=== PATIENT | female | born 1995 | race African-American/Black ===

== ENCOUNTER 2016-10-31 11:45 | Emergency (ER) | payer OTHER ==
[~2016-10-31] VITALS: Ht 160 cm; Wt 72.6 kg
[~2016-10-31 11:45] MED LIST: GRIFULVIN V500 MG PO; IBUPROFEN 400400 M1 PO; IBUPROFEN 600600 M1 PO; NAPROSYN500 MG PO; PROMETHAZINE-C120 ML PO
[2016-10-31 12:04] LABS: URINE BILIRUBIN NEGATIVE (Negative); URINE BLOOD NEGATIVE (Negative); URINE COLOR YELLOW; URINE GLUCOSE-RANDOM* NEGATIVE (Negative); URINE KETONES NEGATIVE (Negative); URINE NITRITE NEGATIVE (Negative); URINE PROTEIN (DIPSTICK) NEGATIVE (Negative); URINE SPECIFIC GRAVITY >= 1.030 (1.003-1.035); URINE UROBILINOGEN 0.2 E.U./dl (0.2-1.0)
[2016-10-31] MEDS ORDERED: FLAGYL500 MG PO (12:54)
[2016-10-31 13:23] VITALS: BP 118/62
[2016-11-01 16:09] LABS: CHLAMYDIA TRACHOMATIS-PCR Negative (Negative); NEISSERIA GONORRHEA-PCR Negative (Negative)
== END 2016-10-31 13:23 | disposition home or self-care (01) ==
LOC: ER 11:45
PROVIDERS: Physician Assistant
DX: N76.0 Acute vaginitis (principal)

== ENCOUNTER 2017-05-02 22:52 | Emergency (ER) | payer OTHER ==
[~2017-05-02] VITALS: Ht 162.6 cm; Wt 72.6 kg
--- NOTE | ~2017-05-02 | EKG ---
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: [facility] : 1995 Requested By: Sean Angeles Order Number: [id number] MD: Anatoly Livingston Measurements Intervals [place] Rate: 78 P: 49 NC: 163 QRS: 70 QRSD: 82 T: 27 QT: 364 QTc: 415 Interpretive Statements Sinus rhythm Baseline wander in lead(s) V3 Compared to ECG 06/15/2016 13:36:59 No significant changes Electronically Signed On 05-03-2017 13:28:52 CDT by Anatoly Livingston [email or web address] <ELECTRONICALLY SIGNED> By: Anatoly Livingston MD 05/03/17 1328 Anatoly Livingston MD /CAPRICE
[~2017-05-02 22:52] MED LIST changes: +FLAGYL500 MG PO
[2017-05-02 23:31] LABS: URINE BILIRUBIN NEGATIVE (Negative); URINE BLOOD NEGATIVE (Negative); URINE COLOR YELLOW; URINE GLUCOSE-RANDOM* NEGATIVE (Negative); URINE KETONES NEGATIVE (Negative); URINE LEUKOCYTES-REFLEX NEGATIVE (Negative); URINE PROTEIN (DIPSTICK) NEGATIVE (Negative); URINE SPECIFIC GRAVITY 1.025 (1.003-1.035); URINE UROBILINOGEN 0.2 E.U./dl (0.2-1.0)
[2017-05-03 00:14] LABS: HEMATOCRIT 32.9 % (37.0-47.0); HEMOGLOBIN 10.6 gm/dL (12.0-15.0); MCH 25.8 pg (26.0-34.0); MCHC 32.2 g/dL (28.0-37.0); RBC 4.11 mil/uL (4.20-5.00); RDW 15.7 % (10.5-14.5); WBC 9.9 thou/uL (4.0-11.0)
[2017-05-03 00:29] LABS: ALBUMIN 3.7 g/dL (3.4-5.0); CALCIUM 9.3 mg/dL (8.5-10.1); POTASSIUM 3.6 mmol/L (3.5-5.1); TOTAL BILIRUBIN 0.3 mg/dL (<0.1-1.0); TOTAL PROTEIN 7.6 g/dL (6.4-8.2)
[2017-05-03 00:34] LABS: CREATININE 0.9 mg/dL (0.6-1.0)
[2017-05-03 01:21] VITALS: BP 124/68
== END 2017-05-03 01:21 | disposition home or self-care (01) ==
LOC: ER 22:52
PROVIDERS: Emergency Medicine
DX: R42 Dizziness and giddiness (principal); R11.2 Nausea with vomiting, unspecified; Z98.890 Other specified postprocedural states

== ENCOUNTER 2017-10-07 20:57 | Emergency (ER) | payer OTHER ==
[~2017-10-07] VITALS: Ht 160 cm; Wt 68.0 kg
[~2017-10-07 20:57] MED LIST changes: +OMEPRAZOLE20 M1 PO; +ULTRAM 50MG TAB50 MG PO; +ZOFRAN4 MG PO
[2017-10-07] MEDS ORDERED: DELSYM COUGH+C180 M1 PO (22:28)
== END 2017-10-07 23:04 | disposition home or self-care (01) ==
LOC: ER 20:57
DX: J06.9 Acute upper respiratory infection, unspecified (principal); B97.89 Other viral agents as the cause of diseases classified elsewhere

== ENCOUNTER 2018-08-16 17:57 | Emergency (ER) | payer OTHER ==
[~2018-08-16] VITALS: Ht 160 cm; Wt 72.6 kg
[~2018-08-16 17:57] MED LIST changes: +DELSYM COUGH+C180 M1 PO
[2018-08-16 18:09] LABS: URINE BILIRUBIN NEGATIVE (Negative); URINE BLOOD NEGATIVE (Negative); URINE CLARITY CLEAR; URINE COLOR YELLOW; URINE GLUCOSE-RANDOM* NEGATIVE (Negative); URINE KETONES TRACE (Negative); URINE LEUKOCYTES-REFLEX NEGATIVE (Negative); URINE NITRITE-REFLEX NEGATIVE (Negative); URINE PROTEIN (DIPSTICK) NEGATIVE (Negative); URINE SPECIFIC GRAVITY 1.015 (1.005-1.035); URINE UROBILINOGEN 0.2 E.U./dl (0.2-1.0)
[2018-08-16 18:40] LABS: ABSOLUTE NEUTROPHILS 5.9 thou/uL (1.4-8.2); BASOPHILS 0.5 % (0.0-2.0); EOSINOPHILS 0.4 % (0.0-3.0); HEMOGLOBIN 12.5 gm/dL (12.0-15.0); LYMPHOCYTES 33.2 % (24.0-44.0); MCH 27.7 pg (26.0-34.0); MCHC 33.7 g/dL (28.0-37.0); MCV 82.3 fL (80.0-100.0); MONOCYTES 10.8 % (1.0-8.0); PLATELET COUNT 173 thou/uL (150-400); POLYS 55.1 % (36.0-66.0); RDW 15.2 % (10.5-14.5); WBC 10.8 thou/uL (4.0-11.0)
[2018-08-16 18:45] LABS: ANION GAP 8 mmol/L (7-16); BUN 8 mg/dL (7-18); CHLORIDE 103 mmol/L (98-107); CO2 26 mmol/L (21-32); CREATININE 1.1 mg/dL (0.6-1.0); GLUCOSE 90 mg/dL (74-106); POTASSIUM 3.6 mmol/L (3.5-5.1); SODIUM 137 mmol/L (136-145)
[2018-08-16 18:56] LABS: ALBUMIN 3.9 g/dL (3.4-5.0); MAGNESIUM 1.8 mg/dL (1.8-2.4); SGOT 26 U/L (15-37); SGPT 18 U/L (30-65); TOTAL BILIRUBIN 0.3 mg/dL (<0.1-1.0); TROPONIN-I <0.06 ng/mL (<0.06)
[2018-08-16] MEDS ORDERED: PEPCID20 MG PO (19:07)
[2018-08-16] MEDS ORDERED: ZOFRAN ODT4 MG DISSOLVE (19:07)
[2018-08-16 19:26] VITALS: BP 131/75
--- NOTE | 2018-08-18 08:41 | EKG ---
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
== END 2018-08-16 19:26 | disposition home or self-care (01) ==
LOC: ER 17:57
PROVIDERS: Emergency Medicine
DX: R42 Dizziness and giddiness (principal); R11.0 Nausea

== ENCOUNTER 2018-10-19 16:39 | Emergency (ER) | payer OTHER ==
[~2018-10-19] VITALS: Ht 160 cm; Wt 83.5 kg
[~2018-10-19 16:39] MED LIST changes: +PEPCID20 MG PO; +ZOFRAN ODT4 MG DISSOLVE
[2018-10-19 17:16] LABS: ABSOLUTE NEUTROPHILS 4.9 thou/uL (1.4-8.2); BASOPHILS 0.7 % (0.0-2.0); EOSINOPHILS 0.8 % (0.0-3.0); HEMATOCRIT 34.2 % (37.0-47.0); HEMOGLOBIN 11.4 gm/dL (12.0-15.0); LYMPHOCYTES 35.2 % (24.0-44.0); MCH 28.3 pg (26.0-34.0); MCHC 33.4 g/dL (28.0-37.0); MCV 84.9 fL (80.0-100.0); MONOCYTES 9.1 % (1.0-8.0); PLATELET COUNT 157 thou/uL (150-400); POLYS 54.2 % (36.0-66.0); RBC 4.03 mil/uL (4.20-5.00); RDW 14.8 % (10.5-14.5)
[2018-10-19 17:28] LABS: CALCIUM 9.1 mg/dL (8.5-10.1); POTASSIUM 3.5 mmol/L (3.5-5.1)
[2018-10-19 18:07] VITALS: BP 110/67
--- NOTE | 2018-10-20 01:26 | EKG ---
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 : 1995 Requested By: Roxana Cheung Order Number: [id number] MD: Masood Mccloud Measurements Intervals [place] Rate: 61 P: 85 [place]: 156 QRS: 81 QRSD: 77 T: 39 QT: 399 QTc: 402 Interpretive Statements Sinus rhythm Early transition Baseline wander Compared to ECG 08/16/2018 18:40:10 No significant changes Electronically Signed On 10-20-2018 1:26:19 CDT by Masood Mccloud [email or web address] ��������������������������������������������� <ELECTRONICALLY SIGNED> ���������������������������������������� By: Masood Mccloud MD ��������������������������������������������� 10/20/18 0126 [id number] [id number] Masood Mccloud MD /CAPRICE
== END 2018-10-19 18:15 | disposition home or self-care (01) ==
LOC: ER 16:39
PROVIDERS: Student in an Organized Health Care Education/Training Program
DX: M94.0 Chondrocostal junction syndrome [Tietze] (principal)

== ENCOUNTER 2018-11-26 06:46 | Emergency (ER) | payer OTHER ==
[~2018-11-26] VITALS: Ht 160 cm; Wt 81.7 kg
[2018-11-26] MEDS ORDERED: REGLAN 5 MG TAB5 MG PO (09:03)
[2018-11-26 09:52] VITALS: BP 110/72
== END 2018-11-26 09:53 | disposition home or self-care (01) ==
LOC: ER 06:46
DX: R51 Headache (principal)

== ENCOUNTER 2019-01-11 16:03 | Emergency (ER) | payer OTHER ==
[~2019-01-11] VITALS: Ht 162.6 cm; Wt 81.2 kg
[~2019-01-11 16:03] MED LIST changes: +REGLAN 5 MG TAB5 MG PO
[2019-01-11 16:20] LABS: URINE BILIRUBIN NEGATIVE (Negative); URINE BLOOD NEGATIVE (Negative); URINE CLARITY CLEAR; URINE COLOR YELLOW; URINE GLUCOSE-RANDOM* NEGATIVE (Negative); URINE KETONES NEGATIVE (Negative); URINE LEUKOCYTES-REFLEX NEGATIVE (Negative); URINE NITRITE-REFLEX NEGATIVE (Negative); URINE PROTEIN (DIPSTICK) NEGATIVE (Negative); URINE SPECIFIC GRAVITY 1.015 (1.005-1.035); URINE UROBILINOGEN 0.2 E.U./dl (0.2-1.0)
[2019-01-11 17:17] VITALS: BP 114/78
== END 2019-01-11 17:50 | disposition home or self-care (01) ==
LOC: ER 16:03
PROVIDERS: Nurse Practitioner Family
DX: Z32.01 Encounter for pregnancy test, result positive (principal)

== ENCOUNTER 2019-01-15 18:17 | Emergency (ER) | payer OTHER ==
[~2019-01-15] VITALS: Ht 162.6 cm; Wt 81.2 kg
[2019-01-15 18:30] LABS: URINE BILIRUBIN NEGATIVE (Negative); URINE BLOOD NEGATIVE (Negative); URINE CLARITY CLEAR; URINE COLOR YELLOW; URINE GLUCOSE-RANDOM* NEGATIVE (Negative); URINE KETONES NEGATIVE (Negative); URINE LEUKOCYTES-REFLEX NEGATIVE (Negative); URINE NITRITE-REFLEX NEGATIVE (Negative); URINE PROTEIN (DIPSTICK) NEGATIVE (Negative); URINE SPECIFIC GRAVITY >= 1.030 (1.005-1.035); URINE UROBILINOGEN 0.2 E.U./dl (0.2-1.0)
[2019-01-15 19:45] LABS: BASOPHILS 0.5 % (0.0-2.0); EOSINOPHILS 0.5 % (0.0-3.0); HEMATOCRIT 36.1 % (37.0-47.0); HEMOGLOBIN 11.9 gm/dL (12.0-15.0); LYMPHOCYTES 28.4 % (24.0-44.0); MCH 28.7 pg (26.0-34.0); MCV 86.9 fL (80.0-100.0); MONOCYTES 10.1 % (1.0-8.0); PLATELET COUNT 167 thou/uL (150-400); POLYS 60.5 % (36.0-66.0); RBC 4.15 mil/uL (4.20-5.00); RDW 14.3 % (10.5-14.5); WBC 9.9 thou/uL (4.0-11.0)
[2019-01-15 19:51] LABS: CREATININE 0.9 mg/dL (0.6-1.0); POTASSIUM 3.3 mmol/L (3.5-5.1)
[2019-01-15 19:57] LABS: ALBUMIN 3.6 g/dL (3.4-5.0); TOTAL BILIRUBIN 0.2 mg/dL (<0.1-1.0); TOTAL PROTEIN 7.4 g/dL (6.4-8.2)
[2019-01-15 21:33] VITALS: BP 100/77
== END 2019-01-15 21:46 | disposition home or self-care (01) ==
LOC: ER 18:17
PROVIDERS: Nurse Practitioner Family
DX: O26.891 Other specified pregnancy related conditions, first trimester (principal); Z3A.01 Less than 8 weeks gestation of pregnancy; K59.00 Constipation, unspecified

== ENCOUNTER 2019-02-04 03:45 | Emergency (ER) | payer OTHER ==
[~2019-02-04] VITALS: Ht 170.2 cm; Wt 79.8 kg
[2019-02-04 04:00] LABS: URINE BILIRUBIN NEGATIVE (Negative); URINE BLOOD NEGATIVE (Negative); URINE CLARITY SL CLOUDY; URINE COLOR YELLOW; URINE GLUCOSE-RANDOM* NEGATIVE (Negative); URINE KETONES NEGATIVE (Negative); URINE LEUKOCYTES-REFLEX NEGATIVE (Negative); URINE NITRITE-REFLEX NEGATIVE (Negative); URINE PROTEIN (DIPSTICK) TRACE (Negative); URINE SPECIFIC GRAVITY >= 1.030 (1.005-1.035); URINE UROBILINOGEN 0.2 E.U./dl (0.2-1.0)
[2019-02-04] MEDS ORDERED: REGLAN 10 MG TA10 MG PO (04:52)
[2019-02-04 05:03] LABS: CALCIUM 8.9 mg/dL (8.5-10.1); CREATININE 0.8 mg/dL (0.6-1.0); POTASSIUM 3.7 mmol/L (3.5-5.1)
[2019-02-04 06:02] VITALS: BP 123/69
== END 2019-02-04 06:09 | disposition home or self-care (01) ==
LOC: ER 03:45
PROVIDERS: Emergency Medicine
DX: O26.891 Other specified pregnancy related conditions, first trimester (principal); M54.41 Lumbago with sciatica, right side; Z3A.01 Less than 8 weeks gestation of pregnancy

== ENCOUNTER 2019-04-15 16:14 | Emergency (ER) | payer OTHER ==
[~2019-04-15] VITALS: Ht 162.6 cm; Wt 78.9 kg
[~2019-04-15 16:14] MED LIST changes: +REGLAN 10 MG TA10 MG PO
[2019-04-15] MEDS ORDERED: PRENATAL PO (16:18)
[2019-04-15 16:35] LABS: URINE BILIRUBIN NEGATIVE (Negative); URINE BLOOD NEGATIVE (Negative); URINE CLARITY CLEAR; URINE COLOR YELLOW; URINE GLUCOSE-RANDOM* NEGATIVE (Negative); URINE KETONES NEGATIVE (Negative); URINE LEUKOCYTES-REFLEX NEGATIVE (Negative); URINE NITRITE-REFLEX NEGATIVE (Negative); URINE PROTEIN (DIPSTICK) NEGATIVE (Negative); URINE UROBILINOGEN 0.2 E.U./dl (0.2-1.0)
[2019-04-15 16:50] LABS: ABSOLUTE NEUTROPHILS 6.9 thou/uL (1.4-8.2); BASOPHILS 0.2 % (0.0-2.0); EOSINOPHILS 0.7 % (0.0-3.0); HEMATOCRIT 34.8 % (37.0-47.0); HEMOGLOBIN 11.8 gm/dL (12.0-15.0); LYMPHOCYTES 18.3 % (24.0-44.0); MCH 30.2 pg (26.0-34.0); MCV 88.9 fL (80.0-100.0); MONOCYTES 8.9 % (1.0-8.0); PLATELET COUNT 159 thou/uL (150-400); POLYS 71.9 % (36.0-66.0); RBC 3.91 mil/uL (4.20-5.00); RDW 13.5 % (10.5-14.5); WBC 9.6 thou/uL (4.0-11.0)
[2019-04-15 16:58] LABS: CALCIUM 9.2 mg/dL (8.5-10.1); CREATININE 0.6 mg/dL (0.6-1.0); POTASSIUM 3.4 mmol/L (3.5-5.1)
[2019-04-15 18:15] VITALS: BP 102/53
== END 2019-04-15 18:15 | disposition home or self-care (01) ==
LOC: ER 16:14
PROVIDERS: Nurse Practitioner Family
DX: O26.892 Other specified pregnancy related conditions, second trimester (principal); R10.30 Lower abdominal pain, unspecified; R11.2 Nausea with vomiting, unspecified; Z3A.18 18 weeks gestation of pregnancy

== ENCOUNTER 2020-11-09 16:13 | Emergency (ER) | payer OTHER ==
[~2020-11-09] VITALS: Ht 162.6 cm; Wt 95.3 kg
[~2020-11-09 16:13] MED LIST changes: +PRENATAL PO
[2020-11-09 16:25] LABS: URINE BILIRUBIN NEGATIVE (Negative); URINE BLOOD NEGATIVE (Negative); URINE CLARITY CLEAR; URINE COLOR YELLOW; URINE GLUCOSE-RANDOM* NEGATIVE (Negative); URINE KETONES NEGATIVE (Negative); URINE NITRITE-REFLEX NEGATIVE (Negative); URINE PROTEIN (DIPSTICK) NEGATIVE (Negative); URINE SPECIFIC GRAVITY 1.025 (1.005-1.035); URINE UROBILINOGEN 0.2 E.U./dl (0.2-1.0)
[2020-11-09 16:28] LABS: URINE LEUKOCYTES-REFLEX 1+ (Negative)
[2020-11-09 16:32] LABS: MUCUS 4-6 Moderate strn/LPF (None Seen); SQUAMOUS >10 Many /LPF (0-3)
[2020-11-09 16:33] LABS: URINE RBC 0-2 Rare /HPF (0-2); URINE WBC-REFLEX 0-5 Rare /HPF (0-5)
[2020-11-09 16:34] LABS: CASTS None Seen /LPF (None Seen); CRYSTALS None Seen /LPF (None Seen); YEAST-REFLEX Present (None Seen)
[2020-11-09] MEDS ORDERED: DIFLUCAN150 MG PO (17:42)
[2020-11-09] MEDS ORDERED: MACROBID 100 M100 MG PO (17:42)
[2020-11-09 18:15] VITALS: BP 146/83
== END 2020-11-09 18:15 | disposition home or self-care (01) ==
LOC: ER 16:13
PROVIDERS: Physician Assistant
DX: B37.3 Candidiasis of vulva and vagina (principal); N39.0 Urinary tract infection, site not specified; F12.90 Cannabis use, unspecified, uncomplicated

== ENCOUNTER 2021-07-07 07:05 | Emergency (ER) | payer OTHER ==
[~2021-07-07] VITALS: Ht 160 cm; Wt 104.3 kg
[~2021-07-07 07:05] MED LIST changes: +DIFLUCAN150 MG PO; +MACROBID 100 M100 MG PO
[2021-07-07 07:28] LABS: URINE BILIRUBIN NEGATIVE (Negative); URINE BLOOD NEGATIVE (Negative); URINE CLARITY CLEAR; URINE COLOR YELLOW; URINE GLUCOSE-RANDOM* NEGATIVE (Negative); URINE KETONES NEGATIVE (Negative); URINE LEUKOCYTES-REFLEX NEGATIVE (Negative); URINE NITRITE-REFLEX NEGATIVE (Negative); URINE PROTEIN (DIPSTICK) NEGATIVE (Negative); URINE UROBILINOGEN 0.2 E.U./dl (0.2-1.0)
[2021-07-07 08:45] LABS: ABSOLUTE NEUTROPHILS 5.5 thou/uL (1.4-8.2); EOSINOPHILS 0.5 % (0.0-3.0); HEMATOCRIT 40.6 % (37.0-47.0); HEMOGLOBIN 13.1 gm/dL (12.0-15.0); LYMPHOCYTES 27.3 % (24.0-44.0); MCH 27.4 pg (26.0-34.0); MCHC 32.2 g/dL (28.0-37.0); MCV 85.2 fL (80.0-100.0); MONOCYTES 6.4 % (1.0-8.0); PLATELET COUNT 210 thou/uL (150-400); POLYS 64.8 % (36.0-66.0); RBC 4.76 mil/uL (4.20-5.00); RDW 14.3 % (10.5-14.5); WBC 8.4 thou/uL (4.0-11.0)
[2021-07-07 08:54] LABS: CALCIUM 8.9 mg/dL (8.5-10.1); CREATININE 0.9 mg/dL (0.6-1.0); POTASSIUM 3.9 mmol/L (3.5-5.1)
[2021-07-07 09:08] LABS: ALBUMIN 3.8 g/dL (3.4-5.0); DIRECT BILIRUBIN 0.1 mg/dL (<0.1-0.2); TOTAL BILIRUBIN 0.4 mg/dL (0.2-1.0); TOTAL PROTEIN 7.9 g/dL (6.4-8.2)
[2021-07-07 09:54] VITALS: BP 128/70
== END 2021-07-07 09:40 | disposition home or self-care (01) ==
LOC: ER 07:05
PROVIDERS: Student in an Organized Health Care Education/Training Program
DX: N83.201 Unspecified ovarian cyst, right side (principal)

== ENCOUNTER 2021-07-24 05:40 | Emergency (ER) | payer OTHER ==
[~2021-07-24] VITALS: Ht 160 cm; Wt 102.1 kg
[2021-07-24 05:56] VITALS: BP 108/59
[2021-07-24] MEDS ORDERED: NAPROSYN500 MG PO (08:01)
[2021-07-24] MEDS ORDERED: TAMIFLU75 MG PO (08:01)
[2021-07-24] MEDS ORDERED: ZOFRAN ODT4 MG PO (08:03)
== END 2021-07-24 08:55 | disposition home or self-care (01) ==
LOC: ER 05:40
PROVIDERS: Student in an Organized Health Care Education/Training Program
DX: U07.1 COVID-19 (principal); J10.1 Influenza due to other identified influenza virus with other respiratory manifestations; M94.0 Chondrocostal junction syndrome [Tietze]